=== PATIENT | male | born 1970 | race Caucasian/White ===

== ENCOUNTER 2017-05-21 00:17 | Inpatient (IN) | payer OTHER ==
[~2017-05-21] VITALS: Ht 167.6 cm; Wt 98.9 kg
[~2017-05-21 00:17] MED LIST: ALPR1TAB2 PO; FURO40TA4 PO; LOS50T PO; SERT-274 PO; TRAZ100T2 PO
[2017-05-21 00:57] LABS: Basophils # (auto) 0.1 uL; Basophils % (auto) 1.1 % (0.0-2.0); Eosinophils # (auto) 0.1 uL; Eosinophils % (auto) 1.4 % (0.0-7.0); Hematocrit 44.6 % (41.0-53.0); Hemoglobin 15.2 g/dL (13.5-17.5); Lymphocytes # (auto) 1.5 uL; Mean Corpuscular Hemoglobin 28.5 pg (28.0-32.0); Mean Corpuscular Hgb Conc. 34.1 g/dL (32.0-36.0); Mean Corpuscular Volume 83.7 fL (80.0-100.0); Monocytes # (auto) 0.6 uL; Monocytes % (auto) 8.8 % (0.0-12.0); Neutrophils # (auto) 4.6 uL; Neutrophils % (auto) 66.7 % (37.0-80.0); Nucleated Red Blood Cells % 0.1 %; Platelet Count (auto) 251 10^3/uL (140-450); Red Blood Cells 5.33 10^6/uL (4.5-5.90); Red Cell Distribution Width 15.7 % (11.8-14.3); White Blood Cell 6.9 10^3/uL (4.4-10.8)
[2017-05-21 01:11] LABS: Calcium 7.9 mg/dL (8.5-10.1); Potassium 3.3 mmol/L (3.5-5.1)
[2017-05-21 01:14] LABS: BUN/Creatinine Ratio 14.3
[2017-05-21 01:15] LABS: Albumin 3.4 g/dL (3.4-5.0); Magnesium 2.4 mg/dL (1.6-2.6)
[2017-05-21 01:28] LABS: Bilirubin, Total 0.4 mg/dL (0.2-1.0); Total Protein 7.5 g/dL (6.4-8.2)
[2017-05-21] MEDS ORDERED: MORPHINE SULF INJ 2 MG/ML SYRINGE 1ML ONE (02:44)
[2017-05-21] MEDS ORDERED: ONDANSETRON HCL 4 MG/2 ML VIAL IV ONE (02:45)
[2017-05-21] MEDS ORDERED: MORPHINE SULFATE 4 MG/ML SYR/VIAL IV ONE (02:45)
[2017-05-21] MEDS ORDERED: ENOXAPARIN SOD 100 MG/1 ML SYRINGE SC ONE (02:45)
[2017-05-21] MEDS ORDERED: NITROGLYCERIN 0.4 MG SL TAB SL ONE (02:45)
[2017-05-21] MEDS ORDERED: ASPirin 81 mg TAB PO ONE (02:45)
[2017-05-21] MEDS ORDERED: MORPHINE SULFATE 4 MG/ML SYR/VIAL IV PRN ×2 (04:15→05:30)
[2017-05-21] MEDS ORDERED: NITROGLYCERIN 0.4 MG SL TAB SL PRN (04:15)
[2017-05-21] MEDS ORDERED: ONDANSETRON HCL 4 MG/2 ML VIAL IV PRN (05:30)
[2017-05-21] MEDS ORDERED: ACETAMINOPHEN 500 MG TAB PO PRN (05:30)
[2017-05-21] MEDS ORDERED: POTASSIUM CHL 20 Meq TABLET PO ONE (05:30)
[2017-05-21] MEDS ORDERED: DEXTROSE (50%) 50ML SYRG IV PRN (05:30)
[2017-05-21] MEDS: ACCU-CHEK COMFORT CURVE STRIP VI SCH ×4 (06:42→22:28)
[2017-05-21] MEDS: InsuLIN REG 1unit/0.01ml Soln (100units/ml) SC SCH ×4 (06:46→22:20)
[2017-05-21] MEDS: SERTRALINE HCL 50 MG TAB PO SCH (07:28)
[2017-05-21] MEDS: ASPirin-EC 81 mg tab PO SCH (07:28)
[2017-05-21] MEDS: METOPROLOL TARTRATE 25 MG TAB PO SCH ×2 (07:28→22:00)
[2017-05-21 07:46] LABS: Cholesterol 213 mg/dL (< 200); HDL Cholesterol 15 mg/dL (40-59); Triglycerides 858 mg/dL (< 150)
[2017-05-21] MEDS ORDERED: LORazepam 2MG/ML-1ML VIAL IV ONE (14:00)
[2017-05-21] MEDS: SODIUM CHLORIDE 0.9% 1,000 ML IV SCH (15:50)
[2017-05-21 17:27] VITALS: BP 124/83
[2017-05-21] MEDS ORDERED: FENO54TA4 PO (18:45)
[2017-05-21] MEDS ORDERED: SERT-274 PO (18:45)
[2017-05-21] MEDS ORDERED: CARV25TA55 PO (18:45)
[2017-05-21] MEDS ORDERED: PERCOT PO (18:45)
[2017-05-21] MEDS ORDERED: GABA100C9 PO (18:45)
[2017-05-21] MEDS ORDERED: EMPA1TAB3 PO (18:45)
[2017-05-21 20:00] VITALS: BP 118/79
[2017-05-21] MEDS: ATORVASTATIN 20 MG TAB PO SCH (22:25)
[2017-05-21] MEDS: traZODone HCL 50 MG TAB PO SCH (22:25)
[2017-05-22] VITALS (7 sets, daily range): BP systolic 114–155; BP diastolic 64–100
[2017-05-22 06:06] LABS: Urine Bacteria NONE SEEN /hpf (None Seen); Urine Blood Negative /uL (Negative); Urine Specific Gravity 1.033 (1.001-1.035); Urine WBC 1 /hpf (0 - 3)
[2017-05-22 06:21] LABS: Basophils # (auto) 0 uL; Basophils % (auto) 0.4 % (0.0-2.0); Eosinophils # (auto) 0.2 uL; Eosinophils % (auto) 2.9 % (0.0-7.0); Hemoglobin 13.9 g/dL (13.5-17.5); Lymphocytes # (auto) 1.6 uL; Lymphocytes % (auto) 27.6 % (10.0-50.0); Mean Corpuscular Hemoglobin 27.7 pg (28.0-32.0); Mean Corpuscular Hgb Conc. 32.3 g/dL (32.0-36.0); Mean Corpuscular Volume 85.7 fL (80.0-100.0); Monocytes # (auto) 0.5 uL; Monocytes % (auto) 8.5 % (0.0-12.0); Neutrophils # (auto) 3.5 uL; Neutrophils % (auto) 60.6 % (37.0-80.0); Nucleated Red Blood Cells % 0.1 %; Platelet Count (auto) 195 10^3/uL (140-450); Red Blood Cells 5.02 10^6/uL (4.5-5.90); Red Cell Distribution Width 15.8 % (11.8-14.3); White Blood Cell 5.8 10^3/uL (4.4-10.8)
[2017-05-22] MEDS: ACCU-CHEK COMFORT CURVE STRIP VI SCH ×4 (06:29→22:13)
[2017-05-22] MEDS: InsuLIN REG 1unit/0.01ml Soln (100units/ml) SC SCH ×4 (06:29→22:00)
[2017-05-22 06:35] LABS: Barbiturate Scree,Urine NEGATIVE (NEGATIVE)
[2017-05-22 06:39] LABS: Alcohol, Urine < 3.0 mg/dL (0-5); Amphetamine Screen, Urine NEGATIVE (NEGATIVE); Benzodiazephine Screen, Urine NEGATIVE (NEGATIVE); Cannabinoid Screen, Urine NEGATIVE (NEGATIVE); Cocaine Screen, Urine NEGATIVE (NEGATIVE); Opiate Scree,Urine NEGATIVE (NEGATIVE); Phencyclidine Screen, Urine NEGATIVE (NEGATIVE)
[2017-05-22 06:48] LABS: Albumin 3.4 g/dL (3.4-5.0); BUN/Creatinine Ratio 19.8; Bilirubin, Total 0.4 mg/dL (0.2-1.0); Calcium 8.3 mg/dL (8.5-10.1); Magnesium 2.4 mg/dL (1.6-2.6); Potassium 3.9 mmol/L (3.5-5.1); Total Protein 7.1 g/dL (6.4-8.2)
[2017-05-22] MEDS ORDERED: LIDOCAINE 2%HCL (LOCAL ANESTH.) INJ 20ML MDV ONE (09:21)
[2017-05-22] MEDS ORDERED: IODIXANOL 320MG/ML 100ML BTL IV ONE (09:22)
[2017-05-22] MEDS ORDERED: VERAPAMIL 2.5MG/ML INJ 2ML VIAL IV ONE (09:49)
[2017-05-22] MEDS ORDERED: fentaNYL CITRATE 100 MCG/2 ML VL ONE (09:50)
[2017-05-22] MEDS ORDERED: EPTIFIBATIDE INJ (2MG/ML) 10ML VIAL IV ONE (09:50)
[2017-05-22] MEDS ORDERED: MIDAZOLAM HCL 1MG/1ML-2 ML VIAL ONE (09:50)
[2017-05-22] MEDS: SERTRALINE HCL 50 MG TAB PO SCH (10:00)
[2017-05-22] MEDS ORDERED: ANGIOMAX 250 MG VIAL IV ONE (10:00)
[2017-05-22] MEDS: SODIUM CHLORIDE 0.9% 1,000 ML IV SCH (10:15)
[2017-05-22] MEDS ORDERED: PRASUGREL HCL 10 MG TAB ONE (10:31)
[2017-05-22] MEDS ORDERED: HYDROmorphone HCL 2 MG/ML VL ONE (10:35)
[2017-05-22] MEDS: ASPirin-EC 81 mg tab PO SCH (12:54)
[2017-05-22] MEDS: METOPROLOL TARTRATE 25 MG TAB PO SCH ×2 (12:54→22:13)
[2017-05-22] MEDS ORDERED: LOSARTAN POTASSIUM 50 MG TAB PO ONE (15:00)
[2017-05-22] MEDS: ATORVASTATIN 20 MG TAB PO SCH (22:12)
[2017-05-22] MEDS: traZODone HCL 50 MG TAB PO SCH (22:12)
[2017-05-22] MEDS: HYDROcodone-ACET 5/325MG TAB PO PRN (23:26)
[2017-05-23] MEDS ORDERED: MORPHINE SULF INJ 2 MG/ML SYRINGE 1ML ONE (00:08)
[2017-05-23 05:00] VITALS: BP 158/77
[2017-05-23] MEDS: SODIUM CHLORIDE 0.9% 1,000 ML IV SCH (05:38)
[2017-05-23 05:56] LABS: Basophils # (auto) 0 uL; Basophils % (auto) 0.3 % (0.0-2.0); Eosinophils # (auto) 0.2 uL; Eosinophils % (auto) 3.3 % (0.0-7.0); Hematocrit 42.2 % (41.0-53.0); Hemoglobin 13.8 g/dL (13.5-17.5); Lymphocytes # (auto) 1.9 uL; Lymphocytes % (auto) 27.7 % (10.0-50.0); Mean Corpuscular Hemoglobin 27.7 pg (28.0-32.0); Mean Corpuscular Hgb Conc. 32.7 g/dL (32.0-36.0); Mean Corpuscular Volume 84.6 fL (80.0-100.0); Monocytes # (auto) 0.5 uL; Monocytes % (auto) 7.7 % (0.0-12.0); Neutrophils # (auto) 4.2 uL; Nucleated Red Blood Cells % 0.1 %; Platelet Count (auto) 202 10^3/uL (140-450); Red Blood Cells 4.99 10^6/uL (4.5-5.90); Red Cell Distribution Width 15.1 % (11.8-14.3); White Blood Cell 6.9 10^3/uL (4.4-10.8)
[2017-05-23] MEDS: InsuLIN REG 1unit/0.01ml Soln (100units/ml) SC SCH ×2 (06:09→11:30)
[2017-05-23] MEDS: ACCU-CHEK COMFORT CURVE STRIP VI SCH ×2 (06:09→11:30)
[2017-05-23 06:22] LABS: Potassium 3.6 mmol/L (3.5-5.1)
[2017-05-23 06:26] LABS: Albumin 3.3 g/dL (3.4-5.0); BUN/Creatinine Ratio 15.9; Calcium 8.5 mg/dL (8.5-10.1)
[2017-05-23 06:28] LABS: Bilirubin, Total 0.2 mg/dL (0.2-1.0)
[2017-05-23 09:00] VITALS: BP 160/102
[2017-05-23] MEDS ORDERED: LOSARTAN POTASSIUM 50 MG TAB PO SCH (10:00)
[2017-05-23] MEDS ORDERED: CLOPIDOGREL BISULFATE 75 MG TAB PO SCH (10:00)
[2017-05-23] MEDS: ASPirin-EC 81 mg tab PO SCH (10:33)
[2017-05-23] MEDS: METOPROLOL TARTRATE 25 MG TAB PO SCH (10:33)
[2017-05-23] MEDS: SERTRALINE HCL 50 MG TAB PO SCH (10:34)
[2017-05-23] MEDS ORDERED: MORPHINE SULF INJ 2 MG/ML SYRINGE 1ML IV PRN (10:45)
[2017-05-23] MEDS: HYDROcodone-ACET 5/325MG TAB PO PRN ×2 (12:43→17:35)
[2017-05-23 13:00] VITALS: BP 160/89
[2017-05-23] MEDS ORDERED: ASPI-378 PO (13:40)
[2017-05-23] MEDS ORDERED: ATOR20TA50 PO (13:40)
[2017-05-23] MEDS ORDERED: CLOP75TA28 PO (13:42)
[2017-05-23 17:12] VITALS: BP 149/94
== END 2017-05-23 18:00 | disposition home or self-care (01) | DRG 246 ==
LOC: EDBD 00:17 → ER 00:17 → TELE 00:18 → TELE-WESTW 16:47
PROVIDERS: ADMIT Nurse Practitioner Family; ATTEND Internal Medicine
PROC: 027034Z Dilation of Coronary Artery, One Artery with Drug-eluting Intraluminal Device, Percutaneous Approach (ICD-10-PCS; principal; 2017-05-22)
PROC: 4A023N7 Measurement of Cardiac Sampling and Pressure, Left Heart, Percutaneous Approach (ICD-10-PCS; 2017-05-22)
PROC: B2111ZZ Fluoroscopy of Multiple Coronary Arteries using Low Osmolar Contrast (ICD-10-PCS; 2017-05-22)
DX: I21.4 Non-ST elevation (NSTEMI) myocardial infarction (principal); N17.0 Acute kidney failure with tubular necrosis; E87.1 Hypo-osmolality and hyponatremia; I13.0 Hypertensive heart and chronic kidney disease with heart failure and stage 1 through stage 4 chronic kidney disease, or unspecified chronic kidney disease; E11.21 Type 2 diabetes mellitus with diabetic nephropathy; I50.9 Heart failure, unspecified; E87.6 Hypokalemia; E78.5 Hyperlipidemia, unspecified; F17.210 Nicotine dependence, cigarettes, uncomplicated; F41.9 Anxiety disorder, unspecified; K76.0 Fatty (change of) liver, not elsewhere classified; I25.10 Atherosclerotic heart disease of native coronary artery without angina pectoris; M19.90 Unspecified osteoarthritis, unspecified site; N18.9 Chronic kidney disease, unspecified; F32.9 Major depressive disorder, single episode, unspecified; R79.89 Other specified abnormal findings of blood chemistry; E66.9 Obesity, unspecified; Z68.35 Body mass index [BMI] 35.0-35.9, adult; I25.2 Old myocardial infarction; Z79.899 Other long term (current) drug therapy; Z79.84 Long term (current) use of oral hypoglycemic drugs
CPT/HCPCS: 36415; 70450; 70551; 71045; 73630; 76705; 80053; 80061; 80307; 81001; 82550; 82962; 83036; 83735; 83880; 84443; 84484; 85025; 92928; 93005; 93306; 93458; 93886; 96360; 96372; 96374; 96375; 99152; 99153; C1874; C1887; J1815; J2250; J2405; Q9967

== ENCOUNTER 2017-09-18 11:49 | Inpatient (IN) | payer OTHER ==
[~2017-09-18] VITALS: Ht 167.6 cm; Wt 101.0 kg
[~2017-09-18 11:49] MED LIST changes: -ALPR1TAB2 PO; +ASPI-378 PO; +ATOR20TA50 PO; +CARV25TA55 PO; +CLOP75TA28 PO; +FENO54TA4 PO; +GABA100C9 PO; -LOS50T PO; -SERT-274 PO
[2017-09-18] MEDS ORDERED: LIDOCAINE 2%HCL (LOCAL ANESTH.) INJ 20ML MDV ONE ×2 (13:12→14:11)
[2017-09-18] MEDS ORDERED: IODIXANOL 320MG/ML 100ML BTL IV ONE (13:12)
[2017-09-18] MEDS ORDERED: MIDAZOLAM HCL 1MG/1ML-2 ML VIAL ONE (13:32)
[2017-09-18] MEDS ORDERED: ANGIOMAX 250 MG VIAL IV ONE (13:33)
[2017-09-18] MEDS ORDERED: fentaNYL CITRATE 100 MCG/2 ML VL ONE (13:33)
[2017-09-18] MEDS ORDERED: SODIUM CHL 0.9% 50 ML ONE (13:33)
[2017-09-18] MEDS ORDERED: IOHEXOL 350 MG/ML 100ML IJ ONE (14:00)
[2017-09-18] MEDS ORDERED: METOPROLOL TARTRATE 1MG/1ML-5ML VIAL IV ONE ×2 (14:17→14:27)
[2017-09-18] MEDS ORDERED: hydrALAZINE HCL 20 MG/ML VL ONE (14:37)
[2017-09-18] MEDS ORDERED: NITROGLYCERIN 50MG/250ML 250 ML IV ONE (14:51)
[2017-09-18] MEDS ORDERED: ENALAPRILAT 1.25 MG/ML-1ML VIAL IV ONE (15:06)
[2017-09-18] MEDS ORDERED: NITROGLYCERIN 0.4 MG SL TAB SL PRN (16:15)
[2017-09-18] MEDS ORDERED: ACETAMINOPHEN 500 MG TAB PO PRN (16:15)
[2017-09-18] MEDS ORDERED: DEXTROSE (50%) 50ML SYRG IV PRN (16:15)
[2017-09-18] MEDS ORDERED: cloNIDine HCL 0.1 MG TAB PO PRN (16:15)
[2017-09-18] MEDS ORDERED: MORPHINE SULFATE 8mg/ml INJ SDV IV PRN (16:15)
[2017-09-18 16:30] VITALS: BP_SYST 118; BP_SYST 125; BP_DIAS 81
[2017-09-18] MEDS ORDERED: traZODone HCL 50 MG TAB PO PRN (17:00)
[2017-09-18] MEDS: InsuLIN REG 1unit/0.01ml Soln (100units/ml) SC SCH (17:55)
[2017-09-18] MEDS: ACCU-CHEK COMFORT CURVE STRIP VI SCH ×2 (17:55→22:23)
[2017-09-18] MEDS: HYDROcodone-ACET 5/325MG TAB PO PRN (19:30)
[2017-09-18 19:40] VITALS: BP 130/93
[2017-09-18] MEDS ORDERED: MORPHINE SULFATE 8mg/ml INJ SDV IV ONE (21:20)
[2017-09-18 22:00] VITALS: BP 141/96
[2017-09-18] MEDS ORDERED: InsuLIN REG 1unit/0.01ml Soln (100units/ml) SC SCH (22:00)
[2017-09-18] MEDS ORDERED: ATORVASTATIN 20 MG TAB PO SCH (22:00)
[2017-09-18] MEDS: SODIUM CHLOR 0.9% PF (SALINE LOCK) 10ML VIAL/SYR IV SCH (22:21)
[2017-09-18] MEDS: CARVEDILOL 12.5 MG TAB PO SCH (22:22)
[2017-09-18] MEDS: GABAPENTIN 100 MG CAP PO SCH (22:23)
[2017-09-19] MEDS: HYDROcodone-ACET 5/325MG TAB PO PRN ×2 (00:49→06:01)
[2017-09-19 04:45] VITALS: BP 111/77
[2017-09-19] MEDS: SODIUM CHLOR 0.9% PF (SALINE LOCK) 10ML VIAL/SYR IV SCH (06:00)
[2017-09-19] MEDS: GABAPENTIN 100 MG CAP PO SCH (06:00)
[2017-09-19] MEDS: InsuLIN REG 1unit/0.01ml Soln (100units/ml) SC SCH ×2 (06:00→11:30)
[2017-09-19] MEDS: ACCU-CHEK COMFORT CURVE STRIP VI SCH ×2 (06:00→11:36)
[2017-09-19 07:48] VITALS: BP 160/110
[2017-09-19] MEDS: CARVEDILOL 12.5 MG TAB PO SCH (09:48)
[2017-09-19] MEDS ORDERED: FENOFIBRATE 54 MG PO SCH (10:00)
[2017-09-19] MEDS ORDERED: ASPirin-EC 81 mg tab PO SCH (10:00)
[2017-09-19] MEDS ORDERED: CLOPIDOGREL BISULFATE 75 MG TAB PO SCH (10:00)
[2017-09-19] MEDS ORDERED: NIFEdipine ER 30 MG TAB PO SCH ×2 (10:00)
[2017-09-19 12:38] VITALS: BP 155/108
== END 2017-09-19 13:16 | disposition home or self-care (01) | DRG 247 ==
LOC: CATH 11:49 → TELE-EAST 11:50
PROVIDERS: ADMIT Internal Medicine Cardiovascular Disease; ATTEND Internal Medicine Cardiovascular Disease
PROC: 027034Z Dilation of Coronary Artery, One Artery with Drug-eluting Intraluminal Device, Percutaneous Approach (ICD-10-PCS; principal; 2017-09-18)
PROC: 4A023N7 Measurement of Cardiac Sampling and Pressure, Left Heart, Percutaneous Approach (ICD-10-PCS; 2017-09-18)
PROC: B2111ZZ Fluoroscopy of Multiple Coronary Arteries using Low Osmolar Contrast (ICD-10-PCS; 2017-09-18)
PROC: B4181ZZ Fluoroscopy of Bilateral Renal Arteries using Low Osmolar Contrast (ICD-10-PCS; 2017-09-18)
DX: I21.9 Acute myocardial infarction, unspecified (principal); E11.9 Type 2 diabetes mellitus without complications; I25.110 Atherosclerotic heart disease of native coronary artery with unstable angina pectoris; E78.5 Hyperlipidemia, unspecified; J44.9 Chronic obstructive pulmonary disease, unspecified; I10 Essential (primary) hypertension; E66.9 Obesity, unspecified; Z95.5 Presence of coronary angioplasty implant and graft; Z68.35 Body mass index [BMI] 35.0-35.9, adult; Z79.82 Long term (current) use of aspirin; Z91.041 Radiographic dye allergy status; Z71.6 Tobacco abuse counseling; I25.2 Old myocardial infarction
CPT/HCPCS: 36252; 82962; 92928; 93458; 99152; C1874; J1815; J2250; J2270; Q9967

== ENCOUNTER 2017-12-26 14:45 | Emergency (ER) | payer OTHER ==
[~2017-12-26] VITALS: Ht 167.6 cm; Wt 104.3 kg
[2017-12-26 15:32] LABS: Basophils # (auto) 0 uL; Basophils % (auto) 0.5 % (0.0-2.0); Eosinophils # (auto) 0.1 uL; Eosinophils % (auto) 2.2 % (0.0-7.0); Hematocrit 42.9 % (41.0-53.0); Hemoglobin 14.6 g/dL (13.5-17.5); Lymphocytes # (auto) 1.9 uL; Lymphocytes % (auto) 27.9 % (10.0-50.0); Mean Corpuscular Hemoglobin 29.3 pg (28.0-32.0); Mean Corpuscular Hgb Conc. 34.1 g/dL (32.0-36.0); Mean Corpuscular Volume 85.9 fL (80.0-100.0); Monocytes # (auto) 0.6 uL; Monocytes % (auto) 8.5 % (0.0-12.0); Neutrophils # (auto) 4.1 uL; Neutrophils % (auto) 60.9 % (37.0-80.0); Nucleated Red Blood Cells % 0.1 %; Platelet Count (auto) 171 10^3/uL (140-450); Red Blood Cells 4.99 10^6/uL (4.5-5.90); White Blood Cell 6.7 10^3/uL (4.4-10.8)
[2017-12-26 16:06] LABS: Potassium 3.9 mmol/L (3.5-5.1)
[2017-12-26 16:07] LABS: Albumin 3.5 g/dL (3.4-5.0); BUN/Creatinine Ratio 9.5; Bilirubin, Total 0.4 mg/dL (0.2-1.0); Calcium 8.3 mg/dL (8.5-10.1); Total Protein 7.4 g/dL (6.4-8.2)
[2017-12-26 17:58] VITALS: BP 167/107
== END 2017-12-26 18:22 | disposition home or self-care (01) ==
LOC: ER 14:45
DX: K75.9 Inflammatory liver disease, unspecified (principal); E11.65 Type 2 diabetes mellitus with hyperglycemia; E78.5 Hyperlipidemia, unspecified; I25.2 Old myocardial infarction; I50.9 Heart failure, unspecified; F17.210 Nicotine dependence, cigarettes, uncomplicated; Z79.01 Long term (current) use of anticoagulants; Z79.899 Other long term (current) drug therapy; Z79.82 Long term (current) use of aspirin
CPT/HCPCS: 36415; 80053; 85025; 93970